=== PATIENT | female | born 1995 | race African-American/Black ===

== ENCOUNTER 2016-03-09 12:27 | Emergency (ER) | payer MEDICAID ==
[2016-03-09 12:34] VITALS: RESP 16
[2016-03-09] MEDS ORDERED: NS 1,000 ML IV ONE (12:47)
--- NOTE | 2016-03-09 12:47 | EDPHY ---
H & P Stated Complaint: Vag bleeding (light to moderate) x 2 weeks HPI/ROS: HPI CHIEF COMPLAINT: Vaginal bleeding HISTORY OF PRESENT ILLNESS: This patient very pleasant 20-year-old female, with significant past medical history is for asthma, presents to the emergency room with vaginal bleeding. She tells me that this been going on since February 17. She does have irregular menses, however normal has a menstrual cycle for 3-7 days. She was last off her cycle January 12. It reoccurred February 17 and has been persistent. She denies any significant pain, she does endorse urinary frequency, denies being . Denies vaginal discharge. She tells me she going to 10-15 pads per day. Past Medical History: Asthma Past Surgical History: no surgical history Social History: Denies use of drugs, endorses occasional alcohol, denies tobacco products Family History: Noncontributory ROS REVIEW OF SYSTEMS: A comprehensive 10 point review of systems is otherwise negative aside from elements mentioned in the history of present illness. Exam Constitutional triage nursing summary reviewed, vital signs reviewed, awake/ alert. Eyes normal conjunctivae and sclera, EOMI, PERRLA. HENT normal inspection, atraumatic, moist mucus membranes, no epistaxis, neck supple/ no meningismus, no raccoon eyes. Respiratory clear to auscultation bilaterally, normal breath sounds, no respiratory distress, no wheezing. Cardiovascular rate normal, regular rhythm, no murmur, no edema, distal pulses normal. Gastrointestinal soft, non-tender, no rebound, no guarding, normal bowel sounds, no distension, no pulsatile mass. Genitourinary no CVA tenderness. Musculoskeletal no midline vertebral tenderness, full range of motion, no calf swelling, no tenderness of extremities, no meningismus, good pulses, neurovascularly intact. Skin pink, warm, & dry, no rash, skin atraumatic. Neurologic awake, alert and oriented x 3, AAOx3, moves all 4 extremities equally, motor intact, sensory intact, CN II-XII intact, normal cerebellar, normal vision, normal speech. Psychiatric normal mood/affect. Heme/Lymph/Immune no lymphadenopathy. Differential Diagnosis: Includes but is not limited to in a particular order, dysfunctional uterine bleeding, vaginal bleeding, , ectopic , anemia Medical Decision Making: Patient had an IV established will check blood work including test, she will pelvic ultrasound and review evaluate her. Re-evaluation: 1446: re-examination at this time this patient is resting comfortably no acute distress. Patient's urinalysis reviewed shows urinary tract infection. I sent this for urine culture. Keflex given 1st dose here. Pelvic ultrasound is unremarkable. Ultrasound of the pelvis The results of the study are negative for acute disease process I discussed the results of this study with the radiologist 1446: went over this patient's blood work results with her as well as urinalysis and ultrasound results. I do recommend that she follows up with OBGYN for dysfunctional uterine bleeding. Treat her urinary tract infection with Keflex. She does understand if she has significant worsening vaginal bleeding she needs return to the ER. Source: Patient - Personal History LMP (Females 10-55): 15-21 Days Ago Current Tetanus Diphtheria and Acellular Pertussis (TDAP): Yes - Medical/Surgical History Hx Asthma: Yes Hx Chronic Respiratory Disease: No Hx Diabetes: No Hx Cardiac Disease: No Hx Renal Disease: No Hx Cirrhosis: No Hx Alcoholism: No Hx HIV/AIDS: No Hx Splenectomy or Spleen Trauma: No Other PMH: ANXIETY, asthma - Social History Smoking Status: Former smoker Constitutional: Initial Vital Signs Temperature (C) 36.4 C 03/09/16 12:30 Heart Rate 72 03/09/16 12:30 Respiratory Rate 16 03/09/16 12:30 Blood Pressure 111/66 03/09/16 12:30 O2 Sat (%) 98 03/09/16 12:30 O2 Delivery Mode Room Air Allergies/Adverse Reactions: amoxicillin Allergy (Severe, Verified 03/09/16 12:31) Anaphylaxis Penicillins Allergy (Severe, Verified 03/09/16 12:31) Anaphylaxis Home Medications: Medication Instructions Recorded Albuterol Hfa Anes Only 05/18/15 Cephalexin [Keflex] 500 mg PO Q6H #28 cap 03/09/16 Medical Decision Making - Data Points Laboratory Results: Laboratory Results 03/09/16 13:05 03/09/16 13:05 03/09/16 03/09/16 13:15 13:05 WBC 4.58 10^3/uL (3.80-9.50) RBC 4.41 10^6/uL (4.18-5.33) Hgb 13.2 g/dL (12.6-16.3) Hct 38.9 % (38.0-47.0) MCV 88.2 fL (81.5-99.8) MCH 29.9 pg (27.9-34.1) MCHC 33.9 g/dL (32.4-36.7) RDW 12.2 % (11.5-15.2) Plt Count 210 10^3/uL (150-400) MPV 9.0 fL (8.7-11.7) Neut % (Auto) 57.1 % (39.3-74.2) Lymph % (Auto) 32.1 % (15.0-45.0) [place] % (Auto) 9.2 % (4.5-13.0) Eos % (Auto) 0.9 % (0.6-7.6) Baso % (Auto) 0.7 % (0.3-1.7) Nucleat RBC Rel Count 0.0 % (0.0-0.2) Absolute Neuts (auto) 2.62 10^3/uL (1.70-6.50) Absolute Lymphs (auto) 1.47 10^3/uL (1.00-3.00) Absolute Monos (auto) 0.42 10^3/uL (0.30-0.80) Absolute Eos (auto) 0.04 10^3/uL (0.03-0.40) Absolute Basos (auto) 0.03 10^3/uL (0.02-0.10) Absolute Nucleated RBC 0.00 10^3/uL (0-0.01) Immature Gran % 0.0 % (0.0-1.1) Immature Gran # 0.00 10^3/uL (0.00-0.10) Sodium 144 mEq/L (134-144) Potassium 3.8 mEq/L (3.5-5.2) Chloride 110 mEq/L (97-110) Carbon Dioxide 23 mEq/l (22-31) Anion Gap 11 mEq/L (8-16) BUN 10 mg/dL (7-23) Creatinine 0.7 mg/dL (0.6-1.0) Estimated GFR > 60 Glucose 102 H mg/dL (70-100) Calcium 8.9 mg/dL (8.5-10.4) Total Bilirubin 0.5 mg/dL (0.1-1.4) Conjugated Bilirubin 0.1 mg/dL (0.0-0.5) Unconjugated Bilirubin 0.4 mg/dL (0.0-1.1) AST 16 IU/L (14-46) ALT 20 IU/L (9-52) Alkaline Phosphatase 60 IU/L (38-126) Total Protein 7.1 g/dL (6.3-8.2) Albumin 3.7 g/dL (3.5-5.0) Lipase 70.0 IU/L (23-300) Beta HCG, Qual NEGATIVE Urine Color YELLOW Urine Appearance CLEAR Urine pH 5.0 (5.0-7.5) Ur Specific [place] 1.018 (1.002-1.030) Urine Protein NEGATIVE (NEGATIVE) Urine Ketones NEGATIVE (NEGATIVE) Urine Blood 2+ H (NEGATIVE) Urine Nitrate NEGATIVE (NEGATIVE) Urine Bilirubin NEGATIVE (NEGATIVE) Urine Urobilinogen NEGATIVE EU (0.2-1.0) Ur Leukocyte Esterase 1+ H (NEGATIVE) Urine RBC 1-3 /hpf (0-3) Urine WBC 3-5 H /hpf (0-3) Ur Epithelial Cells TRACE /lpf (NONE-1+) Urine Mucus TRACE /lpf (NONE-1+) Ur Culture Indicated? INDICATED H (NI) Urine Glucose NEGATIVE (NEGATIVE) Medications Given: Discontinued Medications Sodium Chloride (Ns) 1,000 mls @ 0 mls/hr IV ONCE ONE PRN Reason: Wide Open Stop: 03/09/16 12:48 Last Admin: 03/09/16 13:21 Dose: 1,000 mls Ibuprofen (Motrin) 600 mg PO EDNOW ONE Stop: 03/09/16 14:25 Last Admin: 03/09/16 14:25 Dose: 600 mg Departure - Departure Disposition: Home, Routine, Self-Care Clinical Impression: DUB (dysfunctional uterine bleeding) Urinary tract infection Qualifiers: Urinary tract infection type: acute cystitis Hematuria presence: with hematuria Qualifier Code: (N30.01) Acute cystitis with hematuria Condition: Good Instructions: Urinary Tract Infection in Women (ED), Dysfunctional Uterine Bleeding (ED) Additional Instructions: 1. Stay well-hydrated 2. return to the emergency room if develops worsening symptoms questions or concerns. 3. I do recommend he follow up with OBGYN. 4. Take antibiotic as prescribed. Referrals: NONE *PRIMARY CARE P,. [Primary Care Provider] - As per Instructions Germaine Hollis MD [Medical Doctor] - As per Instructions Prescriptions: Cephalexin [Keflex] 500 mg PO Q6H #28 cap
[2016-03-09 13:15] LABS: ADD DIFF? NO; ADD MORPH? NO; ADD SCAN? NO; ATYPICAL LYMPHOCYTE FLAG 20 (0-99); FRAGMENT RBC FLAG 0 (0-99); HEMATOCRIT 38.9 % (38.0-47.0); HEMOGLOBIN 13.2 g/dL (12.6-16.3); LEFT SHIFT FLG 0 (0-99); LIPEMIA HEMOLYSIS FLAG 90 (0-99); MEAN CELL HEMOGLOBIN 29.9 pg (27.9-34.1); MEAN CELL HEMOGLOBIN CONCENTR. 33.9 g/dL (32.4-36.7); MEAN CELL VOLUME 88.2 fL (81.5-99.8); PLATELET CLUMPS FLAG 10 (0-99); PLATELET COUNT 210 10^3/uL (150-400); RED BLOOD CELL COUNT 4.41 10^6/uL (4.18-5.33); RED CELL DISTRIBUTION WIDTH 12.2 % (11.5-15.2)
[2016-03-09 13:30] LABS: COLOR YELLOW; LEUKOCYTE ESTERASE,URINE 1+ (NEGATIVE); NITRITE,URINE NEGATIVE (NEGATIVE)
[2016-03-09 13:37] LABS: MUCUS TRACE /lpf (NONE-1+)
[2016-03-09 13:40] LABS: ALANINE AMINOTRANSFERASE 20 IU/L (9-52); ALBUMIN 3.7 g/dL (3.5-5.0); ALKALINE PHOSPHATASE 60 IU/L (38-126); ANION GAP 11 mEq/L (8-16); ASPARTATE AMINOTRANSFERASE 16 IU/L (14-46); BILIRUBIN,TOTAL 0.5 mg/dL (0.1-1.4); BILIRUBIN-CONJUGATED 0.1 mg/dL (0.0-0.5); BILIRUBIN-UNCONJUGATED 0.4 mg/dL (0.0-1.1); CALCIUM 8.9 mg/dL (8.5-10.4); CARBON DIOXIDE 23 mEq/l (22-31); CHLORIDE 110 mEq/L (97-110); CREATININE 0.7 mg/dL (0.6-1.0); GLOMERULAR FILTRATION RATE > 60; GLUCOSE 102 mg/dL (70-100); POTASSIUM 3.8 mEq/L (3.5-5.2); SODIUM 144 mEq/L (134-144); TOTAL PROTEIN 7.1 g/dL (6.3-8.2)
[2016-03-09] MEDS ORDERED: IBUPROFEN 600 MG TAB PO ONE ×2 (14:22→14:24)
--- NOTE | 2016-03-09 14:35 | US ---
Pelvic Ultrasound Indication: Irregular bleeding. Technique: Transabdominal and transvaginal imaging. Comparison: None. Findings: Transabdominal Imaging: The anteverted uterus is normal size measuring 6.8 cm in length x 4.1 x 2.9 cm. No adnexal mass or free fluid. Transvaginal Imaging: The ovaries are minimally enlarged with numerous small peripheral follicles an d normal blood flow on Color Doppler imaging. No ovarian cyst. The right ovary measures 3.1 x 2.8 x 2 .5 cm (11.2 mL). The left ovary measures 3.5 x 3.4 x 1.8 cm (11.2 mL). Uterus has normal homogeneous myometrium. No uterine leiomyomas. Endometrial lining is normal thickne ss (9 mm). Impression: 1. Normal uterus and endometrial lining. No uterine leiomyoma. 2. Query polycystic ovaries. No dominant ovarian cyst. 3. No free fluid or adnexal mass. Comment: Results were discussed with Dr. Shaheen Oswald at 2:20 p.m .on March 09, 2016.
[2016-03-09] MEDS ORDERED: CEPHALEXIN 500 MG CAP PO ONE (14:45)
[2016-03-09 15:44] VITALS: BP 115/66; PULSE 70; TEMP 98.2; O2SAT 97
== END 2016-03-09 15:43 | disposition home or self-care (01) ==
DX: N93.8 Other specified abnormal uterine and vaginal bleeding (principal); N30.01 Acute cystitis with hematuria; B96.89 Other specified bacterial agents as the cause of diseases classified elsewhere; J45.909 Unspecified asthma, uncomplicated; Z87.891 Personal history of nicotine dependence

== ENCOUNTER 2016-03-23 19:13 | Emergency (ER) | payer MEDICAID ==
[2016-03-23 19:31] VITALS: RESP 14; TEMP 98.6
--- NOTE | 2016-03-23 20:37 | EDPHY ---
H & P Time Seen by Provider: 03/23/16 19:46 HPI/ROS: HPI Right elbow pain. 20-year-old female by private vehicle. This patient reports that she fell on an outstretched right arm and injured her right elbow about a week ago. She is right-hand dominant. She reports that she has had pain to the posterior aspect of the right elbow and poor posterior aspect of the proximal right forearm. She was evaluated by her primary care physician several days ago and was told that her elbow was okay. She presents with continued pain and pain with extension of the right elbow. ROS: Constitutional: No fever, no chills. No weakness. Musculoskeletal: No back pain. No neck pain. As above. She denies other extremity pain. Skin: No rashes. No lacerations or abrasions. Neurological: No focal weakness or altered sensation. Past medical history: Anxiety. She is on control pills. Social history: Here by herself. Nonsmoker. Physical Exam: General Appearance: Alert, no distress. This patient is responding to questions appropriately and in full sentences. This patient appears well- hydrated and well-nourished. Eyes: Pupils equal and round no pallor or injection. No lid edema, erythema or injection. Right elbow exam: No significant swelling. No erythema or warmth. She does have some mild tenderness on palpation over the radial head. She has some tenderness on palpation of the posterior aspect of the olecranon and proximal posterior forearm/ulna. No lacerations or abrasions. She has pain with extension of her elbow involving the posterior aspect of the elbow and some mild discomfort with supination and pronation. The right upper extremity is neurovascularly intact. Neurological: Motor sensory function is grossly intact. Cranial nerves are normal. Gait is normal. Skin: Warm and dry, no rashes. Extremities are symmetrical. All joints range without pain or impingement except noted. Psychiatric: No agitation. No depression. Database: EKG: Imaging: Right elbow x-ray series: Negative for fracture, subluxation, dislocation. Interpreted by me. Procedures: Emergency department course: From triage, the patient was sent for appropriate x-rays. 9:00 p.m., patient re-evaluated. Resting comfortably at this time. Results of x-rays discussed. Right elbow was put in a sling. She is more comfortable in this position. I will have her follow up with Orthopedics in the next few days for re-evaluation. Pain medication dosing with ibuprofen discussed. Ranging of the right elbow periodic Chavez was reviewed. All of her questions were answered. Return to emergency department precautions discussed she was discharged in good condition. Differential Diagnosis: The differential diagnosis on this patient includes but is not limited to right elbow sprain. Fracture, subluxation, dislocation unlikely. This represents a partial list of diagnoses considered. These considerations are based on history , physical exam, past history, reassessment and diagnostic testing. Smoking Status: Former smoker Constitutional: Initial Vital Signs Temperature (C) 37.0 C 03/23/16 19:28 Heart Rate 80 03/23/16 19:28 Respiratory Rate 14 03/23/16 19:28 Blood Pressure 116/79 03/23/16 19:28 O2 Sat (%) 97 03/23/16 19:28 O2 Delivery Mode Room Air Allergies/Adverse Reactions: amoxicillin Allergy (Severe, Verified 03/09/16 12:31) Anaphylaxis Penicillins Allergy (Severe, Verified 03/09/16 12:31) Anaphylaxis Home Medications: Medication Instructions Recorded Albuterol Hfa Anes Only 05/18/15 MDM/Departure - Depart Disposition: Home, Routine, Self-Care Clinical Impression: Injury of elbow, right Condition: Good Instructions: Elbow Sprain (ED) Additional Instructions: Read and follow provided instructions. Follow-up with your orthopedics, in 1-2 days for re-evaluation as discussed. Removed right arm from sling periodically and range as discussed. Ibuprofen dosin mg every 6 hours with meals for the next 3 days only. Return to the emergency department for worsening pain, discoloration, swelling, loss of sensation or weakness or other serious concerns. Referrals: Donald Donovan MD [Medical Doctor] - As per Instructions
[2016-03-23 21:15] VITALS: BP 122/71; PULSE 70; O2SAT 98
== END 2016-03-23 21:14 | disposition home or self-care (01) ==
DX: S59.901A Unspecified injury of right elbow, initial encounter (principal); Z87.891 Personal history of nicotine dependence; W18.39XA Other fall on same level, initial encounter
CPT/HCPCS: A4565

== ENCOUNTER 2016-04-04 14:03 | Emergency (ER) | payer MEDICAID ==
[2016-04-04 14:09] VITALS: BP 114/61; PULSE 87; RESP 16; TEMP 98.4; O2SAT 97
--- NOTE | 2016-04-04 14:29 | EDPHY ---
H & P Time Seen by Provider: 04/04/16 14:17 HPI/ROS: CHIEF COMPLAINT: Possible strep throat x2 days HISTORY OF PRESENT ILLNESS: 20-year-old immunocompetent female complaining of 2 days of sore throat, bilateral enlarged exudate of tonsils. No trismus no drooling. No change in voice. No nuchal rigidity. No fever no chills. No flu -like symptoms. No cough. No rash. No abdominal or flank pain. No urinary abnormality PRIMARY CARE PROVIDER:[facility] REVIEW OF SYSTEMS: A ten point review of systems was performed and is negative with the exception of the items mentioned in the HPI PAST MEDICAL & SURGICAL HISTORY: No pertinent medical or surgical history SOCIAL HISTORY: Student PHYSICAL EXAM (Prior to examination, patient consented to physical exam, hands were washed and my usual and customary physical exam procedures followed) 1) GENERAL: Well-developed, well-nourished, alert and oriented. Appears to be in no acute distress. 2) HEAD: Normocephalic, atraumatic 3) HEENT: Pupils equal, round, reactive to light bilaterally. Sclera anicteric. Oropharynx: No trismus no drooling, no hot potato voice. Bilateral tonsils are enlarged with exudate, they are symmetrical with no pointing of the uvula. No evidence of peritonsillar abscess. Ears bilaterally with normal tympanic membranes. 4) NECK: Full range of motion, no meningeal signs. Positive submandibular adenopathy. 5) LUNGS: Clear auscultation bilaterally, no wheezes, no rhonchi, no retractions. 6) HEART: Regular rate and rhythm, no murmur, no heave, no gallop. 7) ABDOMEN: No guarding, no rebound, no focal tenderness, negative McBurney's, negative Higgins's, negative Rovsing's, negative peritoneal sign, 8) MUSCULOSKELETAL: No peripheral edema or discoloration. 9) BACK: No CVA tenderness 10) SKIN: No rash, no petechiae. DIFFERENTIAL DIAGNOSIS: No particular include but limited to strep pharyngitis , mononucleosis, peritonsillar abscess Smoking Status: Former smoker Constitutional: Initial Vital Signs Temperature (C) 36.9 C 04/04/16 14:07 Heart Rate 87 02/27/17 14:07 Respiratory Rate 16 04/04/16 14:07 Blood Pressure 114/61 04/04/16 14:07 O2 Sat (%) 97 04/04/16 14:07 O2 Delivery Mode Room Air Allergies/Adverse Reactions: amoxicillin Allergy (Severe, Verified 04/04/16 14:05) Anaphylaxis Penicillins Allergy (Severe, Verified 04/04/16 14:05) Anaphylaxis Home Medications: Medication Instructions Recorded Albuterol Hfa Anes Only 05/18/15 Bcp 04/04/16 Clindamycin HCl [Clindamycin] 300 mg PO TID #30 cap 04/04/16 MDM/Departure - MDM ED Course/Re-evaluation: High clinical suspicion for strep pharyngitis. Recommended empiric treatment. Doubt peritonsillar abscess. Usual and customary pharyngitis precautions provided. She is penicillin allergic. Prescribed clindamycin. - Depart Disposition: Home, Routine, Self-Care Clinical Impression: Acute streptococcal pharyngitis Condition: Good Instructions: Strep Throat (ED) Additional Instructions: Return to the ER immediately if you cannot swallow, have drooling, fevers, neck stiffness, cannot open your jaw, or any other symptoms that concern you. Prescriptions: Clindamycin HCl [Clindamycin] 300 mg PO TID #30 cap Referrals: ARIANA HEATON [Other] - 1-2 days without fail
== END 2016-04-04 14:37 | disposition home or self-care (01) ==
DX: J02.0 Streptococcal pharyngitis (principal); Z87.891 Personal history of nicotine dependence

== ENCOUNTER 2016-05-26 13:23 | Emergency (ER) | payer MEDICAID ==
[2016-05-26 13:32] VITALS: BP 125/84; PULSE 78; RESP 16; TEMP 99.1; O2SAT 98
--- NOTE | 2016-05-26 14:15 | UCPHY ---
H & P Time Seen by Provider: 05/26/16 13:40 Patient Type: Established HPI/ROS: This patient injured her left thumb at the metacarpophalangeal joint 4 days ago while or wrestling with her 10-year-old nephew. She did not fall to the ground does not remember the exact mechanism but points to the ulnar aspect of the 1st metacarpophalangeal joint as the source of the pain and has noted mild swelling associated with this. ROS: No numbness or tingling. No other musculoskeletal injuries. 5 point ROS is otherwise negative. Past Medical/Surgical History: Otherwise healthy Smoking Status: Former smoker Physical Exam: Physical Exam Vital signs are normal. General: No acute distress Eyes: Pupils equal and react to light. Extraocular motions are intact. Lungs: No respiratory distress. Cardiac: Brisk capillary refill is intact throughout. Skin: No rash or pallor. Extremities: Atraumatic normal except for left thumb Left thumb: Patient has mild swelling at the 1st metacarpophalangeal joint with ulnar tenderness to the same joint. While there seems to be mild laxity this joint is symmetric with the uninjured thumb think this is her baseline. No ecchymosis. No other hand tenderness or swelling. Neuro: Alert and oriented x3 with no sensorimotor deficits. Initial differential diagnosis: Thumb fracture versus sprain Constitutional: Initial Vital Signs Temperature (C) 37.3 C 05/26/16 13:24 Heart Rate 78 05/26/16 13:24 Respiratory Rate 16 05/26/16 13:24 Blood Pressure 125/84 H 05/26/16 13:24 O2 Sat (%) 98 05/26/16 13:24 O2 Delivery Mode Room Air Allergies/Adverse Reactions: amoxicillin Allergy (Severe, Verified 05/26/16 13:32) Anaphylaxis Penicillins Allergy (Severe, Verified 05/26/16 13:32) Anaphylaxis Home Medications: Medication Instructions Recorded Bcp 04/04/16 MDM/Departure - MDM Diagnostics: Imaging Impressions Finger X-Ray 05/26/16 13:34 Impression: There is no acute osseous abnormality identified. Imaging Results: Imaging Impressions Finger X-Ray 05/26/16 13:34 Impression: There is no acute osseous abnormality identified. Thumb x-ray: Negative for fracture by my interpretation ED Course/Re-evaluation: Counseled patient drinks hears them. She is placed in a Velcro thumb spica splint. - Depart Disposition: Home, Routine, Self-Care Clinical Impression: Skier's thumb Qualifiers: Encounter type: initial encounter Laterality: left Qualified Code(s): S63.642A - Sprain of metacarpophalangeal joint of left thumb, initial encounter Condition: Good Instructions: Skier's Thumb (ED) Additional Instructions: Diagnosis: Skier's Thumb (thumb sprain) Plan: Thumb splint when your active up and about until symptoms resolve-likely 5-10 days or so. Gentle stretches of the thumb in the meantime to prevent stiffness. Ibuprofen and/or Tylenol for pain until symptoms resolved Limit activity until your symptoms resolve Follow up with the orthopedic physician if you're not improving over the next 7- 10 days with treatment plan. Referrals: FLORINA URBAN,Shawn [Primary Care Provider] - As per Instructions Navya Villalba MD [Medical Doctor] - As per Instructions - PQRS PQRS Measurement: NA
== END 2016-05-26 14:20 | disposition home or self-care (01) ==
LOC: CED 13:23
DX: S63.642A Sprain of metacarpophalangeal joint of left thumb, initial encounter (principal); Y93.72 Activity, wrestling; X50.0XXA Overexertion from strenuous movement or load, initial encounter
CPT/HCPCS: 73140-PO; 99214-PO; G0463-PO; L3807

== ENCOUNTER 2016-06-01 11:11 | Emergency (ER) | payer MEDICAID ==
[2016-06-01 11:31] VITALS: BP 138/74; PULSE 78; RESP 18; TEMP 98; O2SAT 96
--- NOTE | 2016-06-01 12:20 | UCPHY ---
H & P Time Seen by Provider: 06/01/16 12:00 Patient Type: Established HPI/ROS: I saw this patient 6 days prior to this visit for thumb injury with a normal thumb x-ray, diagnosed with ski ears thumb and placed in a Velcro thumb spica splint. She reports still having pain and came back for a recheck. She reports that the pain is now extending up the foot distal forearm a bit. While she was given Dr. browne would since orthopedic phone number for follow-up for any ongoing worsening symptoms she did not follow up with the industry segment specialist. She reports compliance with the splint. She has not taken any medications today for pain. ROS: She denies any intercurrent injury. She denies any numbness or tingling. No swelling. 5 point ROS is otherwise negative. Smoking Status: Former smoker Physical Exam: Physical Exam Vital signs are normal. General: No acute distress Cardiac: Brisk capillary refill is intact throughout. Pulses are 2+ and symmetric in the affected extremity. Skin: No rash or pallor. Extremities: Atraumatic normal except for left thumb that exam is notable for mild tenderness at the metacarpophalangeal joint without significant swelling or laxity. No discoloration. She has mild tenderness to the distal forearm associated with this but no ecchymosis swelling or erythema. Neuro: Alert and oriented x3 with no sensorimotor deficits. Constitutional: Initial Vital Signs Temperature (C) 36.6 C 06/01/16 11:29 Heart Rate 78 06/01/16 11:29 Respiratory Rate 18 06/01/16 11:29 Blood Pressure 138/74 H 06/01/16 11:29 O2 Sat (%) 96 06/01/16 11:29 O2 Delivery Mode Room Air Allergies/Adverse Reactions: amoxicillin Allergy (Severe, Verified 05/26/16 13:32) Anaphylaxis Penicillins Allergy (Severe, Verified 05/26/16 13:32) Anaphylaxis Home Medications: Medication Instructions Recorded Bcp 04/04/16 Ibuprofen [Motrin (*)] 600 mg PO Q6 PRN #30 tab 06/01/16 MDM/Departure - [facility] ED Course/Re-evaluation: Discussion: This patient has a benign exam currently with no clinical evidence of complications of her initial sprain. I counseled regarding this. I reminded her to follow up with the industry segment specialist for further evaluation - Depart Disposition: Home, Routine, Self-Care Clinical Impression: Thumb sprain Qualifiers: Encounter type: initial encounter Sprain of finger site: metacarpophalangeal joint Laterality: unspecified laterality Qualified Code(s): S63.649A - Sprain of metacarpophalangeal joint of unspecified thumb, initial encounter Condition: Good Instructions: Skier's Thumb (ED) Additional Instructions: Diagnosis: Thumb sprain Plan: You may also have a tendon strain this causing the pain extending up her forearm. Ibuprofen 600 mg per 6 hours as needed for pain Tylenol in addition Wear the splint until symptoms improve but the sure to do gentle stretches of thumb daily Due to the ongoing symptoms, follow up with Dr. pavan salazar-industry segment specialist for further evaluation. Prescriptions: Ibuprofen [Motrin (*)] 600 mg PO Q6 PRN #30 tab PRN Reason: Pain Referrals: FLORINA URBAN,. [Primary Care Provider] - As per Instructions Navya Villalba MD [Medical Doctor] - As per Instructions - PQRS PQRS Measurement: NA
== END 2016-06-01 12:21 | disposition home or self-care (01) ==
LOC: CED 11:11
DX: S63.642A Sprain of metacarpophalangeal joint of left thumb, initial encounter (principal)
CPT/HCPCS: 99214-PO; G0463-PO

== ENCOUNTER 2016-07-14 16:16 | Emergency (ER) | payer MEDICAID ==
[2016-07-14] MEDS ORDERED: NS 1,000 ML IV ONE (17:20)
--- NOTE | 2016-07-14 17:33 | EDPHY ---
H & P Stated Complaint: fever n/v/d Time Seen by Provider: 07/14/16 16:42 HPI/ROS: CHIEF COMPLAINT: Fever, vomiting, diarrhea, sinus congestion HISTORY OF PRESENT ILLNESS: The patient is a 20-year-old female who comes to the emergency department complaining of a fever up to 103 yesterday. She has not had a fever today. She also states that she had diarrhea and vomited twice yesterday. Nonbloody. She states that she has sinus congestion. She also had a mild sore throat a few days ago. Yesterday her boyfriend told her she needed to come to the ER but she could not get her right here until today. She denies abdominal pain. She denies urinary symptoms or vaginal symptoms. REVIEW OF SYSTEMS: Constitutional: See HPI EENTM: See HPI Respiratory: denies: cough, shortness of breath Cardiac: denies: chest pain, irregular heart rate, lightheadedness, palpitations Gastrointestinal/Abdominal: See HPI Genitourinary: denies: dysuria, frequency, hematuria, pain Musculoskeletal: denies: joint pain, muscle pain Skin: denies: lesions, rash, jaundice, bruising Neurological: denies: headache, numbness, paresthesia, tingling, dizziness, weakness Hematologic/Lymphatic: denies: blood clots, easy bleeding, easy bruising Immunologic/allergic: denies: HIV/AIDS, transplant EXAM: GENERAL: Well-appearing, well-nourished and in no acute distress. HEAD: Atraumatic, normocephalic. EYES: Pupils equal round and reactive to light, extraocular movements intact, sclera anicteric, conjunctiva are normal. ENT: TMs normal, sinus congestion , oropharynx clear without exudates. Moist mucous membranes. NECK: Normal range of motion, supple without lymphadenopathy or JVD. LUNGS: Breath sounds clear to auscultation bilaterally and equal. No wheezes rales or rhonchi. HEART: Regular rate and rhythm without murmurs, rubs or gallops. ABDOMEN: Soft, nontender, normoactive bowel sounds. No guarding, no rebound. No masses appreciated. BACK: No CVA tenderness, no spinal tenderness, step-offs or deformities EXTREMITIES: Normal range of motion, no pitting or edema. No clubbing or cyanosis. NEUROLOGICAL: Cranial nerves II through XII grossly intact. Normal speech, normal gait. 5/5 strength, normal movement in all extremities, normal sensation PSYCH: Normal mood, normal affect. SKIN: Warm, dry, normal turgor, no visible rashes or lesions. Source: Patient Exam Limitations: No limitations - Personal History LMP (Females 10-55): 8-14 Days Ago Current Tetanus/Diphtheria Vaccine: Unsure - Medical/Surgical History Hx Asthma: Yes Hx Chronic Respiratory Disease: No Hx Diabetes: No Hx Cardiac Disease: No Hx Renal Disease: No Hx Cirrhosis: No Hx Alcoholism: No Hx HIV/AIDS: No Hx Splenectomy or Spleen Trauma: No Other PMH: ANXIETY, asthma, depression - Family History Significant Family History: No pertinent family hx - Social History Smoking Status: Former smoker Alcohol Use: Sober Drug Use: None Constitutional: Initial Vital Signs Temperature (C) 36.8 C 07/14/16 16:19 Heart Rate 88 07/14/16 16:19 Respiratory Rate 16 07/14/16 16:19 Blood Pressure 127/75 H 07/14/16 16:19 O2 Sat (%) 97 07/14/16 16:19 O2 Delivery Mode Room Air Allergies/Adverse Reactions: amoxicillin Allergy (Severe, Verified 07/14/16 16:18) Anaphylaxis Penicillins Allergy (Severe, Verified 07/14/16 16:18) Anaphylaxis Home Medications: Medication Instructions Recorded Bcp 04/04/16 Ibuprofen [Motrin (*)] 600 mg PO Q6 PRN #30 tab 06/01/16 Citalopram 07/14/16 Medical Decision Making ED Course/Re-evaluation: The patient is well appearing now. She is afebrile. Her vital signs are stable. She is receiving IV fluids which will help since she was having diarrhea and vomiting yesterday. Otherwise we discussed fever control and hydration and rest. I suspect that she has a viral illness. Her sister has something similar. We discussed the natural course and indications for returning to the emergency department. Differential Diagnosis: Partial list of the Differential diagnosis considered include but were not limited to; viral syndrome, gastroenteritis, dehydration, electrolyte abnormality and although unlikely based on the history and physical exam, I also considered sepsis, meningitis, ectopic. I discussed these differential diagnoses and the plan with the patient as well as the usual and expected course. The patient understands that the diagnosis is provisional and that in medicine we are not always correct and that further workup is often warranted. Usual and customary warnings were given. All of the patient's questions were answered. The patient was instructed to return to the emergency department should the symptoms at all worsen or return, otherwise to followup with the physician as we discussed. - Data Points Medications Given: Discontinued Medications Sodium Chloride (Ns) 1,000 mls @ 0 mls/hr IV ONCE ONE PRN Reason: Wide Open Stop: 07/14/16 17:21 Last Admin: 07/14/16 17:20 Dose: 1,000 mls Departure - Departure Disposition: Home, Routine, Self-Care Clinical Impression: Fever Qualifiers: Fever type: unspecified Qualified Code(s): R50.9 - Fever, unspecified Diarrhea Qualifiers: Diarrhea type: unspecified type Qualified Code(s): R19.7 - Diarrhea, unspecified Condition: Fair Instructions: Fever in Adults (ED), Acute Diarrhea (ED) Referrals: ARIANA JARAMILLO [Other] - As per Instructions Stand Alone Forms: Work Excuse
[2016-07-14] MEDS ORDERED: ACETAMINOPHEN 500 MG TAB ONE (19:00)
[2016-07-14 19:13] VITALS: BP 107/74; PULSE 79; RESP 18; TEMP 97.9; O2SAT 98
== END 2016-07-14 19:13 | disposition home or self-care (01) ==
DX: R50.9 Fever, unspecified (principal); R19.7 Diarrhea, unspecified; J45.909 Unspecified asthma, uncomplicated; Z87.891 Personal history of nicotine dependence

== ENCOUNTER 2016-08-01 20:35 | Emergency (ER) | payer MEDICAID ==
[2016-08-01 20:46] VITALS: BP 118/81; PULSE 86; RESP 16; TEMP 98.8; O2SAT 97
[2016-08-01] MEDS ORDERED: IBUPROFEN 600 MG TAB PO ONE ×2 (20:49→20:50)
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
== END 2016-08-01 21:24 | disposition home or self-care (01) ==
LOC: CED 20:35
DX: S53.401A Unspecified sprain of right elbow, initial encounter (principal); S46.811A Strain of other muscles, fascia and tendons at shoulder and upper arm level, right arm, initial encounter; Z87.891 Personal history of nicotine dependence; V18.0XXA Pedal cycle driver injured in noncollision transport accident in nontraffic accident, initial encounter; Y92.89 Other specified places as the place of occurrence of the external cause
CPT/HCPCS: 73080-PO; A4565

== ENCOUNTER 2016-08-06 17:39 | Emergency (ER) | payer MEDICAID ==
[2016-08-06 17:52] VITALS: BP 102/71; PULSE 103; RESP 16; TEMP 98.2; O2SAT 96
[2016-08-06] MEDS ORDERED: ACETAMINOPHEN 500 MG TAB PO ONE (18:06)
[2016-08-06] MEDS ORDERED: LIDOCAINE 5% 1 EA PATCH TD ONE (18:37)
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
[2016-08-06] MEDS ORDERED: PATCH REMOVAL 1 EA PATCH TD SCH (21:00)
== END 2016-08-06 18:56 | disposition home or self-care (01) ==
LOC: CED 17:39
DX: S50.11XD Contusion of right forearm, subsequent encounter (principal); Z87.891 Personal history of nicotine dependence; V18.9XXD Unspecified pedal cyclist injured in noncollision transport accident in traffic accident, subsequent encounter
CPT/HCPCS: 73080-PO; 73090-PO

== ENCOUNTER 2016-09-07 20:04 | Emergency (ER) | payer MEDICAID ==
[2016-09-07 20:11] VITALS: BP 122/74; PULSE 81; RESP 14; TEMP 98.8; O2SAT 98
[2016-09-07] MEDS ORDERED: AZITHROMYCIN 250 MG TAB PO ONE (20:22)
--- NOTE | 2016-09-07 20:26 | EDPHY ---
H & P Stated Complaint: posible strep throat Time Seen by Provider: 09/07/16 20:15 HPI/ROS: CHIEF COMPLAINT: Strep throat HISTORY OF PRESENT ILLNESS: Patient is a 20-year-old female who comes to the emergency department complaining of strep throat. She states that on Monday she began having sore throat and today noticed exudate. No fever. No cough. No respiratory symptoms. No abdominal pain, no fatigue. REVIEW OF SYSTEMS: Constitutional: denies: chills, fever, recent illness, recent injury EENTM: See HPI Respiratory: denies: cough, shortness of breath Cardiac: denies: chest pain, irregular heart rate, lightheadedness, palpitations Gastrointestinal/Abdominal: denies: abdominal pain, diarrhea, nausea, vomiting, blood streaked stools Genitourinary: denies: dysuria, frequency, hematuria, pain Musculoskeletal: denies: joint pain, muscle pain Skin: denies: lesions, rash, jaundice, bruising Neurological: denies: headache, numbness, paresthesia, tingling, dizziness, weakness Hematologic/Lymphatic: denies: blood clots, easy bleeding, easy bruising Immunologic/allergic: denies: HIV/AIDS, transplant EXAM: GENERAL: Well-appearing, well-nourished and in no acute distress. HEAD: Atraumatic, normocephalic. EYES: Pupils equal round and reactive to light, extraocular movements intact, sclera anicteric, conjunctiva are normal. ENT: TMs normal, nares patent, erythematous swollen tonsils with exudate. . Moist mucous membranes. NECK: Normal range of motion, supple without lymphadenopathy or JVD. LUNGS: Breath sounds clear to auscultation bilaterally and equal. No wheezes rales or rhonchi. HEART: Regular rate and rhythm without murmurs, rubs or gallops. ABDOMEN: Soft, nontender, normoactive bowel sounds. No guarding, no rebound. No masses appreciated. BACK: No CVA tenderness, no spinal tenderness, step-offs or deformities EXTREMITIES: Normal range of motion, no pitting or edema. No clubbing or cyanosis. NEUROLOGICAL: Cranial nerves II through XII grossly intact. Normal speech, normal gait. 5/5 strength, normal movement in all extremities, normal sensation PSYCH: Normal mood, normal affect. SKIN: Warm, dry, normal turgor, no visible rashes or lesions. Source: Patient Exam Limitations: No limitations - Personal History LMP (Females 10-55): 1-7 Days Ago Current Tetanus/Diphtheria Vaccine: Yes - Medical/Surgical History Hx Asthma: Yes Hx Chronic Respiratory Disease: No Hx Diabetes: No Hx Cardiac Disease: Yes Hx Renal Disease: No Hx Cirrhosis: No Hx Alcoholism: No Hx HIV/AIDS: No Hx Splenectomy or Spleen Trauma: No Other PMH: PMHx: ANXIETY, asthma, depression, heart murmur, intermittent chest pain without further eval. PSHx: denies - Family History Significant Family History: No pertinent family hx - Social History Smoking Status: Former smoker Alcohol Use: Sober Drug Use: None Constitutional: Initial Vital Signs Temperature (C) 37.1 C 09/07/16 20:07 Heart Rate 81 09/07/16 20:07 Respiratory Rate 14 09/07/16 20:07 Blood Pressure 122/74 H 09/07/16 20:07 O2 Sat (%) 98 09/07/16 20:07 O2 Delivery Mode Room Air Allergies/Adverse Reactions: amoxicillin Allergy (Severe, Verified 08/06/16 17:46) Anaphylaxis Penicillins Allergy (Severe, Verified 08/06/16 17:46) Anaphylaxis strawberry Allergy (Verified 09/07/16 20:06) Home Medications: Medication Instructions Recorded Apri 28 Day Tablet 09/07/16 Azithromycin 250 mg PO DAILY #4 tablet 09/07/16 Citalopram 09/07/16 Medical Decision Making ED Course/Re-evaluation: Clinically the patient has strep throat. I will begin treatment. She is happy with this plan. She is afebrile. She is nontoxic-appearing. We discussed indications for returning. No splenomegaly. Differential Diagnosis: Partial list of the Differential diagnosis considered include but were not limited to; strep throat, mononucleosis and although unlikely based on the history and physical exam, I also considered sepsis, abscess. I discussed these differential diagnoses and the plan with the patient as well as the usual and expected course. The patient understands that the diagnosis is provisional and that in medicine we are not always correct and that further workup is often warranted. Usual and customary warnings were given. All of the patient's questions were answered. The patient was instructed to return to the emergency department should the symptoms at all worsen or return, otherwise to followup with the physician as we discussed. - Data Points Medications Given: Discontinued Medications Azithromycin (Zithromax) 500 mg PO EDNOW ONE PRN Reason: Protocol Stop: 09/07/16 20:23 Last Admin: 09/07/16 20:33 Dose: 500 mg Departure - Departure Disposition: Home, Routine, Self-Care Clinical Impression: Strep throat Condition: Fair Instructions: Strep Throat (ED) Referrals: ARIANA JARAMILLO [Other] - As per Instructions Prescriptions: Azithromycin 250 mg PO DAILY #4 tablet
== END 2016-09-07 20:57 | disposition home or self-care (01) ==
DX: J02.0 Streptococcal pharyngitis (principal); J45.909 Unspecified asthma, uncomplicated; Z87.891 Personal history of nicotine dependence

== ENCOUNTER 2016-11-16 15:36 | Emergency (ER) | payer MEDICAID ==
[2016-11-16 15:41] VITALS: BP 106/87; PULSE 88; RESP 16; TEMP 98.1; O2SAT 98
== END 2016-11-16 16:30 | disposition left against medical advice (07) ==
DX: Z53.21 Procedure and treatment not carried out due to patient leaving prior to being seen by health care provider (principal)

== ENCOUNTER 2016-11-16 18:09 | Emergency (ER) | payer MEDICAID ==
[2016-11-16 18:23] VITALS: BP 121/78; PULSE 91; RESP 14; TEMP 99.3; O2SAT 97
[2016-11-16] MEDS ORDERED: IBUPROFEN 600 MG TAB PO ONE (18:51)
--- NOTE | 2016-11-16 18:54 | EDPHY ---
H & P Time Seen by Provider: 11/16/16 18:22 HPI/ROS: This patient reports left hand and wrist injury from a combination of slamming her hand in a screen door at home last night and then falling on outstretched hand. She complains primarily of 5th finger pain and mild wrist discomfort. She reports the pain is at the PIP joint of the 5th finger more than the metacarpophalangeal joint. She also has pain at the 5th metacarpal region of the left hand. She is brought in by her mother by private vehicle for further evaluation of her pain. She has not taken any medication for pain today. ROS: Musculoskeletal: She denies any other injuries from the fall. Neuro: No numbness or tingling the affected extremity Cardiovascular: No pallor to the affected extremity. Integumentary: No lacerations abrasions except for minimal abrasion to the right heel from the screen door. 5 point ROS is otherwise negative Smoking Status: Former smoker Physical Exam: Physical Exam Vital signs are normal. General: No acute distress HEENT: Atraumatic. Eyes: Pupils equal and react to light. Extraocular motions are intact. Lungs: No respiratory distress. Cardiac: Brisk capillary refill is intact throughout. Pulses are 2+ and symmetric in the affected extremity. Skin: No rash or pallor. Extremities: Atraumatic normal except for left hand Left hand: Patient has mild swelling to the 5th metacarpal region extending the 5th finger with tenderness at the PIP joint finger held in partial flexion with increased pain with extension. No malrotation of the affected finger. No laxity in the affected PIP joint. She also has minimal tenderness at the metacarpophalangeal joint but no swelling Left wrist: Although the patient complained of some wrist pain she has no significant tenderness on my exam in the wrist. No anatomical snuffbox tenderness. She maintains full range of motion of the wrist. However motion wrist causes some pain to the 5th metacarpal region. Neuro: Alert with no sensorimotor deficits to the affected extremity. Initial differential diagnosis: Finger sprain versus fracture, 5th metacarpal contusion /hematoma versus fracture Constitutional: Initial Vital Signs Temperature (C) 37.4 C 11/16/16 18:17 Heart Rate 91 11/16/16 18:17 Respiratory Rate 14 11/16/16 18:17 Blood Pressure 121/78 H 11/16/16 18:17 O2 Sat (%) 97 11/16/16 18:17 O2 Delivery Mode Room Air Allergies/Adverse Reactions: amoxicillin Allergy (Severe, Verified 11/16/16 18:16) Anaphylaxis Penicillins Allergy (Severe, Verified 11/16/16 18:16) Anaphylaxis strawberry Allergy (Verified 11/16/16 18:16) Home Medications: Medication Instructions Recorded Apri 28 Day Tablet 09/07/16 Albuterol 11/16/16 MDM/Departure - MDM Diagnostics: Wrist x-rays: Normal by my interpretation Hand x-rays: Normal by my interpretation Imaging Results: Imaging Impressions Hand X-Ray 11/16/16 18:24 Impression: No acute osseous findings. Wrist X-Ray 11/16/16 18:24 Impression: No acute osseous findings. Medications Given: Discontinued Medications Ibuprofen (Motrin) 600 mg PO EDNOW ONE Stop: 11/16/16 18:52 Last Admin: 11/16/16 19:14 Dose: 600 mg ED Course/Re-evaluation: We shannan-taped her 4th 5th finger. I counseled patient regarding finger sprain and hand contusion. We also placed an Jaylon wrap to the hand. Ibuprofen-600 mg p.o. Discussion: Finger sprain without laxity other concerning findings. Neurovascularly intact. - Depart Disposition: Home, Routine, Self-Care Clinical Impression: Finger sprain Qualifiers: Encounter type: initial encounter Finger: little finger Sprain of finger site: other site Laterality: left Qualified Code(s): S63.697A - Other sprain of left little finger, initial encounter Condition: Good Instructions: Finger Sprain (ED) Additional Instructions: Diagnosis: Finger sprain Plan: Ibuprofen Tylenol for discomfort if needed Gentle stretching the finger each day Shannan tape fingers when up and about Wrist splint in addition until symptoms improve-likely over the next 5-7 days. Referrals: FLORINA URBAN,. [Primary Care Provider] - As per Instructions
== END 2016-11-16 19:29 | disposition home or self-care (01) ==
LOC: CED 18:09
DX: S63.697A Other sprain of left little finger, initial encounter (principal); Z87.891 Personal history of nicotine dependence; W23.0XXA Caught, crushed, jammed, or pinched between moving objects, initial encounter
CPT/HCPCS: 73110-PO; 73130-PO

== ENCOUNTER 2017-02-10 00:18 | Emergency (ER) | payer MEDICAID ==
[2017-02-10 00:34] VITALS: BP 138/90; PULSE 90; RESP 16; TEMP 98.6; O2SAT 97
--- NOTE | 2017-02-10 01:20 | EDPHY ---
H & P Time Seen by Provider: 02/10/17 00:25 HPI/ROS: CC: right foot pain Smoking Status: Former smoker Constitutional: Initial Vital Signs Temperature (C) 98.6 F 02/10/17 00:31 Heart Rate 90 02/10/17 00:31 Respiratory Rate 16 02/10/17 00:31 Blood Pressure 138/90 H 02/10/17 00:31 O2 Sat (%) 97 02/10/17 00:31 O2 Delivery Mode Room Air Allergies/Adverse Reactions: amoxicillin Allergy (Severe, Verified 02/10/17 00:34) Anaphylaxis Penicillins Allergy (Severe, Verified 02/10/17 00:34) Anaphylaxis strawberry Allergy (Verified 02/10/17 00:34) Home Medications: Medication Instructions Recorded Apri 28 Day Tablet 09/07/16 Albuterol 11/16/16 Departure - Departure Disposition: Home, Routine, Self-Care Clinical Impression: Pain in right foot Condition: Good Instructions: Plantar Fasciitis (ED), Foot Sprain (ED) Additional Instructions: Wear boot as directed. Follow up with podiatry (Dr. Montes De Oca) or orthopedics ( Dr. Ibanez) next week. Continue ibuprofen as directed for pain. Referrals: Bettie Ibanez MD [Medical Doctor] - As per Instructions Juan Montes De Oca MD [Doctor of Podiatric Medicine] - As per Instructions
== END 2017-02-10 01:19 | disposition home or self-care (01) ==
LOC: CED 00:18
DX: M79.671 Pain in right foot (principal); Z87.891 Personal history of nicotine dependence
CPT/HCPCS: 73590-PO; 73630-PO; L4386

== ENCOUNTER 2017-03-08 14:51 | Emergency (ER) | payer MEDICAID ==
--- NOTE | 2017-03-08 15:08 | EDPHY ---
H & P Stated Complaint: vaginal discharge and itchy, concerned re yeast infection Time Seen by Provider: 03/08/17 15:07 HPI/ROS: HPI: This is a 21-year-old female who presents with Chief Complaint: vaginal discharge and itchy, concerned re yeast infection Location:pelvic Quality: Discharge Duration: 1 day Signs and Symptoms: no fever, no nausea, no vomiting, no hematemesis, no blood in stool, no abdominal bloating, no diarrhea, no back pain, no urinary symptoms , no vaginal bleeding, no indigestion, no chest pain, no shortness of breath Timing: Acute, constant Severity: Moderate Context: Patient reports that she woke up this morning with white vaginal discharge and pruritus. prior history of bacterial vaginosis. Last pelvic exam was approximately urine half ago. She takes oral control pills and reports compliance. Boyfriend of a year and half. Unprotected sexual intercourse. LMP 22 days ago. Modifying Factors: Comment: ROS: see HPI Constitutional: No fever, no chills, no weight loss Eyes: No blurred vision Respiratory: No shortness of breath, no cough Cardiovascular: No chest pain, no palpitations Gastrointestinal: No nausea, no vomiting, no diarrhea, no hematemesis, no blood in stool Genitourinary: No dysuria, no blood in urine Extremities: No myalgias, no edema Neurologic: No weakness, no numbness Skin: No rashes, no petechiae Hematologic: No bruising, no bleeding MEDICAL/SURGICAL/SOCIAL HISTORY: PMHx: Alcohol Syndrome at , ADHD, anxiety, asthma, depression, heart murmur, bacterial vaginosis PSHx: denies Social history: Student CONSTITUTIONAL: awake and alert, no obvious distress HEENT: Atraumatic and normocephalic, PERRL, EOMI. Tympanic membranes clear. Oropharynx clear, no exudate and moist pink mucosa. Airway patent. No lymphadenopathy. No meningismus. Cardiovascular: Normal S1/S2, regular rate, regular rhythm, without murmur rub or gallop. PULMONARY/CHEST: Symmetrical and nontender. Clear to auscultation bilaterally. Good air movement. No accessory muscle usage. ABDOMEN: Soft, nondistended, nontender, no rebound, no guarding, no peritoneal signs, no masses or organomegaly. No CVAT. PELVIC: normal external genitalia, normal cervix, cervical os was closed, no cervical motion tenderness, no adnexal mass, thick yellowish white discharge, no bleeding. The exam was performed with a cloth examiner machine. EXTREMITIES: 2/2 pulses, strength 5/5, no deformities, no clubbing, no cyanosis or edema. NEUROLOGICAL: no focal neuro deficits. GCS 15. SKIN: Warm and dry, no erythema. no rash. Good capillary refill. Source: Patient Exam Limitations: No limitations - Personal History LMP (Females 10-55): 22-28 Days Ago Current Tetanus/Diphtheria Vaccine: Yes Current Tetanus Diphtheria and Acellular Pertussis (TDAP): Yes Tetanus Vaccine Date: < 10 years - Medical/Surgical History Hx Asthma: Yes Hx Chronic Respiratory Disease: No Hx Diabetes: No Hx Cardiac Disease: Yes Hx Renal Disease: No Hx Cirrhosis: No Hx Alcoholism: No Hx HIV/AIDS: No Hx Splenectomy or Spleen Trauma: No Other PMH: PMHx: Alcohol Syndrome at , ADHD, anxiety, asthma, depression, heart murmur, bacterial vaginosis. PSHx: denies - Social History Smoking Status: Former smoker Constitutional: Initial Vital Signs Temperature (C) 36.8 C 03/08/17 14:53 Heart Rate 93 03/08/17 14:53 Respiratory Rate 20 03/08/17 14:53 Blood Pressure 126/89 H 03/08/17 14:53 O2 Sat (%) 97 03/08/17 14:53 O2 Delivery Mode Room Air Allergies/Adverse Reactions: amoxicillin Allergy (Severe, Verified 03/08/17 14:52) Anaphylaxis Penicillins Allergy (Severe, Verified 03/08/17 14:52) Anaphylaxis strawberry Allergy (Verified 03/08/17 14:52) Home Medications: Medication Instructions Recorded Apri 28 Day Tablet 09/07/16 Albuterol 11/16/16 Metronidazole [Metrogel-Vaginal] 1 aga VG HS 5 Days #5 gel.w.appl 03/08/17 Medical Decision Making ED Course/Re-evaluation: Pelvic exam; cultures taken No signs of PID/UTI/vaginal laceration Swab is positive for BV and yeast infection. Given Diflucan 150 mg and prescribed Rx for Metrogel vaginal suppositories. This patient was seen under the supervision of my primary supervising physician. I evaluated care for this patient independently. Differential Diagnosis: Differential diagnosis includes but is not limited to bacterial vaginosis candidiasis, gonorrhea, chlamydia, Trichomonas. - Data Points Laboratory Results: 03/08/17 03/08/17 15:35 15:35 Trichomonas (Wet Prep) NO TRICHOMONAS Gretchen species DNA Pending C.trachomatis RNA (TMA) Pending Gardnerella DNA Probe Pending N.gonorrhoeae RNA (TMA) Pending Trichomonas DNA Probe Pending Medications Given: Discontinued Medications Fluconazole (Diflucan) 150 mg PO EDNOW ONE Stop: 03/08/17 16:25 Last Admin: 03/08/17 16:40 Dose: 150 mg Departure - Departure Disposition: Home, Routine, Self-Care Clinical Impression: Bacterial vaginosis, Vulvovaginal candidiasis Condition: Good Instructions: Bacterial Vaginosis (ED), Yeast Infection (ED) Additional Instructions: Please observe pelvic rest for 1 week. That includes no douching, insertion of tampons, sexual intercourse. Use condoms during sexual intercourse. Take all of the Metrogel suppository for 5 days. Referrals: ARIANA RODAS [Other] - As per Instructions Prescriptions: Metronidazole [Metrogel-Vaginal] 1 aga VG HS 5 Days #5 gel.w.appl
[2017-03-08] MEDS ORDERED: FLUCONAZOLE 150 MG TAB PO ONE (16:24)
[2017-03-08 17:04] VITALS: BP 112/65; PULSE 71; RESP 18; TEMP 97.9; O2SAT 99
[2017-03-09 11:53] LABS: GC AMPLIFICATION GENPROBE NEGATIVE (NEGATIVE)
== END 2017-03-08 17:04 | disposition home or self-care (01) ==
DX: N76.0 Acute vaginitis (principal); B37.3 Candidiasis of vulva and vagina; J45.909 Unspecified asthma, uncomplicated; Z87.891 Personal history of nicotine dependence

== ENCOUNTER 2017-10-11 19:50 | Emergency (ER) | payer MEDICAID ==
--- NOTE | 2017-10-11 20:13 | EDPHY ---
H & P Stated Complaint: Abd cramping, had a blood clot, last period 3 months ago, Time Seen by Provider: 10/11/17 20:12 HPI/ROS: CHIEF COMPLAINT: Pelvic cramping, uterine bleeding HISTORY OF PRESENT ILLNESS: The patient presents the ED with complaints of pelvic cramping and uterine bleeding. She reportedly passed a large clot prior to arrival. She has had mild bleeding since that time. The patient is on continuous oral control pills. Her last menstrual cycle was 3 months ago. The patient is currently sexually active. The patient denies recent complaints of dysuria, fever or flank pain. She denies prior history of abdominal surgery. The patient takes no regular prescription medications aside from her control pills. The patient denies any history of pelvic trauma or painful intercourse. REVIEW OF SYSTEMS: A comprehensive 10 point review of systems is otherwise negative aside from elements mentioned in the history of present illness. Source: Patient Exam Limitations: No limitations - Personal History LMP (Females 10-55): Over 28 Days Ago Current Tetanus Diphtheria and Acellular Pertussis (TDAP): Yes Tetanus Vaccine Date: < 10 years - Medical/Surgical History Hx Asthma: Yes Hx Chronic Respiratory Disease: No Hx Diabetes: No Hx Cardiac Disease: Yes Hx Renal Disease: No Hx Cirrhosis: No Hx Alcoholism: No Hx HIV/AIDS: No Hx Splenectomy or Spleen Trauma: No Other PMH: PMHx: Alcohol Syndrome at , ADHD, anxiety, asthma, depression, heart murmur, bacterial vaginosis. PSHx: denies - Social History Smoking Status: Former smoker - Physical Exam Exam: General Appearance: Alert, mild discomfort Eyes: Pupils equal and round no pallor or injection ENT, Mouth: Mucous membranes moist Respiratory: There are no retractions, lungs are clear to auscultation Cardiovascular: Regular rate and rhythm Gastrointestinal: Tenderness to palpation in the suprapubic area, bilateral lower abdominal tenderness Neurological: 5/5 strength all 4 extremities Skin: Warm and dry, no rashes Musculoskeletal: Neck is supple nontender Extremities: symmetrical, full range of motion Constitutional: Initial Vital Signs Temperature (C) 36.7 C 10/11/17 19:55 Heart Rate 94 10/11/17 19:55 Respiratory Rate 18 10/11/17 19:55 Blood Pressure 137/89 H 10/11/17 19:55 O2 Sat (%) 96 10/11/17 19:55 O2 Delivery Mode Room Air Allergies/Adverse Reactions: amoxicillin Allergy (Severe, Verified 10/11/17 19:54) Anaphylaxis Penicillins Allergy (Severe, Verified 10/11/17 19:54) Anaphylaxis strawberry Allergy (Verified 10/11/17 19:54) Home Medications: Medication Instructions Recorded Apri 28 Day Tablet 09/07/16 Albuterol 11/16/16 Metronidazole [Metrogel-Vaginal] 1 aga VG HS 5 Days #5 gel.w.appl 03/08/17 Medical Decision Making - Diagnostics Imaging Results: Imaging Impressions Pelvic/Renal Ultrasound 10/11/17 20:53 Impression: Normal ultrasound pelvis. Results called and discussed with Dr. Yang Enriquez at 10/11/2017 22:17. ED Course/Re-evaluation: The patient presents to the ED with complaints of abnormal uterine bleeding. She reportedly passed clots earlier today. The patient's test is negative. She is noted to be hemodynamically stable. Patient did have some mild abdominal tenderness and pelvic tenderness. She received Toradol for this. The pelvic ultrasound demonstrates no evidence of an obvious ovarian torsion or cyst. I re-evaluated the patient at 10:30 p.m.. I do feel that she can follow up with her regular primary care provider. The patient is instructed to return to the ED for markedly worsening pain, fever , bleeding or other concerns. Differential Diagnosis: Differential diagnosis considered includes ectopic , dysfunctional uterine bleeding, critical anemia, ovarian torsion - Data Points Laboratory Results: Laboratory Results 10/11/17 20:23 10/11/17 20:23 10/11/17 10/11/17 10/11/17 20:23 20:23 20:23 WBC 8.69 10^3/uL 10^3/uL (3.80-9.50) RBC 4.74 10^6/uL 10^6/uL (4.18-5.33) Hgb 13.3 g/dL g/dL (12.6-16.3) Hct 40.7 % % (38.0-47.0) MCV 85.9 fL fL (81.5-99.8) MCH 28.1 pg pg (27.9-34.1) MCHC 32.7 g/dL g/dL (32.4-36.7) RDW 12.9 % % (11.5-15.2) Plt Count 309 10^3/uL 10^3/uL (150-400) MPV 8.8 fL fL (8.7-11.7) Neut % (Auto) 65.0 % % (39.3-74.2) Lymph % (Auto) 26.7 % % (15.0-45.0) [place] % (Auto) 7.1 % % (4.5-13.0) Eos % (Auto) 0.8 % % (0.6-7.6) Baso % (Auto) 0.2 % L % (0.3-1.7) Nucleat RBC Rel Count 0.0 % % (0.0-0.2) Absolute Neuts (auto) 5.64 10^3/uL 10^3/uL (1.70-6.50) Absolute Lymphs (auto) 2.32 10^3/uL 10^3/uL (1.00-3.00) Absolute Monos (auto) 0.62 10^3/uL 10^3/uL (0.30-0.80) Absolute Eos (auto) 0.07 10^3/uL 10^3/uL (0.03-0.40) Absolute Basos (auto) 0.02 10^3/uL 10^3/uL (0.02-0.10) Absolute Nucleated RBC 0.00 10^3/uL 10^3/uL (0-0.01) Immature Gran % 0.2 % % (0.0-1.1) Immature Gran # 0.02 10^3/uL 10^3/uL (0.00-0.10) Sodium 139 mEq/L mEq/L (135-145) Potassium 4.0 mEq/L mEq/L (3.3-5.0) Chloride 106 mEq/L mEq/L (97-110) Carbon Dioxide 22 mEq/l mEq/l (22-31) Anion Gap 11 mEq/L mEq/L (8-16) BUN 9 mg/dL mg/dL (7-23) Creatinine 0.7 mg/dL mg/dL (0.6-1.0) Estimated GFR > 60 Glucose 106 mg/dL H mg/dL (70-100) Calcium 9.6 mg/dL mg/dL (8.5-10.4) Beta HCG, Qual NEGATIVE Medications Given: Discontinued Medications Ketorolac Tromethamine (Toradol) 30 mg IVP EDNOW ONE Stop: 10/11/17 20:54 Last Admin: 10/11/17 20:59 Dose: 30 mg Departure - Departure Disposition: Home, Routine, Self-Care Clinical Impression: Dysfunctional uterine bleeding Condition: Good Instructions: Dysfunctional Uterine Bleeding (ED) Additional Instructions: 1. Take Ibuprofen or Motrin 600 mg by mouth three times a day. 2. Please return to the ED for markedly worsening symptoms, heavy bleeding or other concerns. 3. Please follow up with your primary care provider as needed. Referrals: ARIANA JARAMILLO [Other] - As per Instructions
[2017-10-11 20:35] LABS: PLATELET COUNT 309 10^3/uL (150-400)
[2017-10-11] MEDS ORDERED: KETOROLAC 30 MG/1 ML SDV IVP ONE (20:53)
[2017-10-11 22:36] VITALS: BP 128/77
== END 2017-10-11 22:41 | disposition home or self-care (01) ==
DX: N93.9 Abnormal uterine and vaginal bleeding, unspecified (principal); R10.2 Pelvic and perineal pain
CPT/HCPCS: 96374; J1885

== ENCOUNTER 2017-12-07 16:34 | Emergency (ER) | payer MEDICAID ==
[2017-12-07 16:40] VITALS: BP 127/83
--- NOTE | 2017-12-07 17:13 | EDPHY ---
H & P Stated Complaint: ST X 3 DAYS ALSO PAIN L HAND Time Seen by Provider: 12/07/17 16:47 HPI/ROS: CHIEF COMPLAINT: Sore throat, left hand pain HISTORY OF PRESENT ILLNESS: This is a 21-year-old female who presents with 3 days of sore throat. She has had a mild cough, no shortness of breath. She has a popping sensation in her left ear. No ear pain. She has not had fever. She had 1 bout of vomiting 2 days ago, none since. She thinks that she vomited only because she felt as if there was something in her throat, not because she had nausea or an abdominal problem. She has not had diarrhea denies dysuria. She also reports left hand pain that she relates to an injury yesterday well kickboxing. REVIEW OF SYSTEMS: A ten system review of systems was performed and is negative with the exception of the items mentioned in the HPI. Past medical history: Reactive airway disease, alcohol syndrome, attention deficit hyperactivity disorder, depression Social history: She works part-time at the [employer]. No tobacco use. General Appearance: Alert. Vital signs reviewed. Vital signs normal. Eyes: Pupils equal and round, no conjunctival injection, no discharge. Anicteric. ENT, Mouth: Mucous membranes are moist, no oropharyngeal erythema or edema. Swallowing easily. EACs and TMs normal. Neck: No lymphadenopathy, supple. Trachea midline. No thyromegaly. Respiratory: Lungs are clear to auscultation; no wheezes, rales, or rhonchi. Cardiovascular: Regular rate and rhythm; no murmur, rub, or gallop. Gastrointestinal: Abdomen is soft and nontender, no masses or organomegaly, bowel sounds normal. Skin: Warm and dry, no rashes on exposed skin, normal color. Back: Nontender to palpation over the thoracolumbar spine. No CVAT. Extremities: Tenderness puts to palpation over the left 5th MCP and proximal small finger. Neurological: Alert and oriented. Moving all four extremities easily and equally. Psychiatric: Normal affect. - Personal History LMP (Females 10-55): Now Current Tetanus Diphtheria and Acellular Pertussis (TDAP): Yes Tetanus Vaccine Date: < 10 years - Medical/Surgical History Hx Asthma: Yes Hx Chronic Respiratory Disease: No Hx Diabetes: No Hx Cardiac Disease: Yes Hx Renal Disease: No Hx Cirrhosis: No Hx Alcoholism: No Hx HIV/AIDS: No Hx Splenectomy or Spleen Trauma: No Other PMH: PMHx: Alcohol Syndrome at , ADHD, anxiety, asthma, depression, heart murmur, bacterial vaginosis. PSHx: denies - Social History Smoking Status: Former smoker Constitutional: Initial Vital Signs Temperature (C) 37.1 C 12/07/17 16:37 Heart Rate 82 12/07/17 16:37 Respiratory Rate 18 12/07/17 16:37 Blood Pressure 127/83 H 12/07/17 16:37 O2 Sat (%) 97 12/07/17 16:37 O2 Delivery Mode Room Air Allergies/Adverse Reactions: amoxicillin Allergy (Severe, Verified 12/07/17 16:36) Anaphylaxis Penicillins Allergy (Severe, Verified 12/07/17 16:36) Anaphylaxis strawberry Allergy (Verified 12/07/17 16:36) Home Medications: Medication Instructions Recorded Apri 28 Day Tablet 09/07/16 Albuterol 11/16/16 Medical Decision Making ED Course/Re-evaluation: Viral pharyngitis--I do not feel that strep swab is warranted, given her physical exam (neg Centor criteria). Symptomatic treatment recommended. I do not think that she has URI, influenza, bronchitis, pneumonia. She c/o hand pain related to boxing. Pain is along fifth metacarpal/mcp joint. She has longstanding flexion deformity of fifth DIP. Xray of left hand negative for acute fracture or dislocation. Departure - Departure Disposition: Home, Routine, Self-Care Clinical Impression: Acute pharyngitis Qualifiers: Pharyngitis/tonsillitis etiology: unspecified etiology Qualified Code(s): J02.9 - Acute pharyngitis, unspecified Contusion of left hand Qualifiers: Encounter type: initial encounter Qualified Code(s): S60.222A - Contusion of left hand, initial encounter Condition: Good Instructions: Pharyngitis (ED), Contusion in Adults (ED) Additional Instructions: Adult Pain & Fever Control: We recommend Acetaminophen (Tylenol) and Ibuprofen (Motrin,Advil) for pain and fever control. When fever is high or pain severe, both drugs can be used at the same time, but at different intervals. Please note the time differences. Your dose is: Acetaminophen 650mg every 4 to 6 hours Ibuprofen 400mg every 6 hours with food OR Note: do not take Acetaminophen with Hydrocodone (Vicodin, Lortab) or Oycodone (Percocet). These medications also contain Acetaminophen. No more than 3000mg of Acetaminophen should be taken in 24 hours (for an adult). Continue with T and honey. I recommend [place] Cold Care Throat Coat tea--you can buy this in the grocery store. Throat lozenges might also help. Ice your hand. You should be excused from work on Tuesday, December 05, 2017. I have written a work excuse that states that you can return to work next week, December 13. Referrals: Dorothy Perez MD [Medical Doctor] - As per Instructions Stand Alone Forms: Work Excuse
== END 2017-12-07 18:18 | disposition home or self-care (01) ==
DX: J02.9 Acute pharyngitis, unspecified (principal); J45.909 Unspecified asthma, uncomplicated; F41.9 Anxiety disorder, unspecified; F32.9 Major depressive disorder, single episode, unspecified; R01.1 Cardiac murmur, unspecified; Q86.0 Fetal alcohol syndrome (dysmorphic); Z87.891 Personal history of nicotine dependence; S60.222A Contusion of left hand, initial encounter; Y93.71 Activity, boxing

== ENCOUNTER 2018-01-23 10:33 | Emergency (ER) | payer MEDICAID ==
[2018-01-23 10:38] VITALS: BP 134/77
--- NOTE | 2018-01-23 11:28 | EDPHY ---
H & P Smoking Status: Former smoker Time Seen by Provider: 01/23/18 10:55 HPI/ROS: CLINICAL IMPRESSION: Yeast vaginitis ASSESSMENT/PLAN: 22-year-old female presents to the emergency department with subjective vaginal itching and a thick white discharge for the last 2 days. No associated pelvic pain, dysuria, urgency, flank pain, fever or chills. Patient states she is not sexually active, is not on her menstrual cycle, and denies STD wrist. She prefers to be treated symptomatically and formal pelvic exam was not performed. She was given a prescription for Diflucan. She is requesting a prescription for Flagyl given that she has had bacterial vaginosis in the past however I recommend she try Diflucan 1st. I also emphasized the importance of primary care establishment and follow-up. Referrals were given. Warning signs return to ED sooner outlined in person and discharge papers DIFFERENTIAL DX: Differential includes but not limited to yeast vaginitis, bacterial vaginosis, STIs, PID, UTI, pyelonephritis CHIEF COMPLAINT: Vaginal discharge and itching HPI: 22-year-old female presents to the emergency department with 2 days of vaginal itching and thick white vaginal discharge. Patient reports no foul-smelling odor. She is not sexually active and denies STIs. She reports no . No dysuria, urgency or flank pain. No lower pelvic pain. No fevers or chills. She has not used anything for treatment but states she has had bacterial vaginosis in the past. She does not have a primary care doctor. PAST MEDICAL HISTORY: alcohol syndrome Pertinent Past Surgical History: Prior orthopedic injuries Family History: None reported Social History: Former smoker ROS: A full 10 point review of systems was negative except for those mentioned in HPI. PHYSICAL EXAM: General Appearance: Alert, oriented, appropriate, cooperative, NAD, well hydrated, non-toxic appearing, VSS, no hypoxia. Respiratory: There are no retractions, lungs are clear to auscultation. Cardiac: Regular rate and rhythm, no murmurs or gallops. Gastrointestinal: Abdomen is soft, nontender, bowel sounds normal, no masses/ hernia, no rigidity, guarding or focal peritoneal findings. Formal pelvic exam declined by patient Skin: Warm, dry, no rashes, no nodules on palpation. MEDICAL DECISION MAKING: Patient was seen independently. Secondary supervising physician at time of evaluation was Dr. De La Cruz . Diagnosis: Yeast vaginitis ]. New, requires workup Summary: See Assessment and Plan for summary of ED visit Patient Progress: Stable. (Wilman Platt) Constitutional: Initial Vital Signs Temperature (C) 36.7 C 01/23/18 10:35 Heart Rate 84 01/23/18 10:35 Respiratory Rate 18 01/23/18 10:35 Blood Pressure 134/77 H 01/23/18 10:35 O2 Sat (%) 96 01/23/18 10:35 O2 Delivery Mode Room Air Allergies/Adverse Reactions: amoxicillin Allergy (Severe, Verified 01/23/18 10:34) Anaphylaxis Penicillins Allergy (Severe, Verified 01/23/18 10:34) Anaphylaxis strawberry Allergy (Verified 01/23/18 10:34) Home Medications: Medication Instructions Recorded Apri 28 Day Tablet 09/07/16 Albuterol 11/16/16 Fluconazole [Diflucan] 200 mg PO DAILY #1 tablet 01/23/18 metroNIDAZOLE [Flagyl 500 mg (*)] 500 mg PO BID #20 tab 01/23/18 MDM/Departure - MDM ED Course/Re-evaluation: The patient was evaluated and managed by the Physician Chart Calculator. My co- signature indicates that I have reviewed this chart and I agree with the findings and plan of care as documented. I am the secondary supervising physician. (Day De La Cruz) - Depart Disposition: Home, Routine, Self-Care Clinical Impression: Vaginal yeast infection Condition: Good Instructions: Yeast Infection (ED) Additional Instructions: DISCHARGE INSTRUCTIONS FROM YOUR DOCTOR Thank you for visiting our emergency department today. Please keep in mind that discharge from the emergency department does not mean that there is nothing wrong - it simply means that we have not identified an emergency condition that requires further evaluation or treatment in the hospital. You should always plan to follow up with primary care for re-evaluation of your condition in the next 2-3 days. If you have been referred to a specialist, please call as soon as possible (today or tomorrow) to schedule your follow up appointment at the appropriate time. We gave you a prescription of Diflucan to take 1 time only for vaginal yeast infection. If her symptoms resolve with this, you do not need to take the additional prescription for Flagyl. Flagyl was prescribed if symptoms persist and treat bacterial vaginosis. Do not drink alcohol with this antibiotic. It is important that you establish care with a primary care provider. Referrals were given to today. Please follow up with them this week. Return to the emergency department for worsening symptoms, fevers, pelvic pain, nausea or vomiting, painful urination or flank pain, or any other concerns. People present with illnesses and injuries in different ways, and it is always possible that we have missed something. You may always return for re-evaluation if symptoms worsen or if they are not improving or if you develop new/different symptoms. Again, thank you for choosing our emergency department. We hope that you feel better. Prescriptions: Fluconazole [Diflucan] 200 mg PO DAILY #1 tablet metroNIDAZOLE [Flagyl 500 mg (*)] 500 mg PO BID #20 tab Referrals: NONE *PRIMARY CARE P,. [Primary Care Provider] - As per Instructions [facility],. [Clinic] - 1-2 days without fail
== END 2018-01-23 11:33 | disposition home or self-care (01) ==
DX: B37.3 Candidiasis of vulva and vagina (principal)

== ENCOUNTER 2018-03-11 13:52 | Emergency (ER) | payer MEDICAID ==
--- NOTE | 2018-03-11 15:30 | EDPHY ---
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 She presents today reporting that she occasionally does self exams while in the shower and she is feeling "bubbles" on her cervix. She is also reporting a brown, somewhat foul smelling discharge. She denies any fevers. No urinary complaints. Has had new sexual partner in January. Uses extended control pills. Last period was at the end of December. Patient did have some spotting about 2-3 weeks ago. No fever, chills, chest pain, shortness of breath, palpitations, vomiting, diarrhea, urinary complaints, headache, lightheadedness. REVIEW OF SYSTEMS: A comprehensive 10 system review of systems was reviewed and is otherwise negative aside from elements mentioned in the history of present illness and medical decision making. PAST MEDICAL HISTORY: Patient denies. Questionable heart murmur as a child. SOCIAL HISTORY: Former smoker. Primary care physician is Pamela at [facility]. VITAL SIGNS Reviewed by me. GENERAL: Well-developed, well-nourished, resting comfortably in no respiratory distress. HEENT: Atraumatic. Eyes: No icterus, no injection. Mouth: moist mucous membranes. No erythema or lesions. Neck: supple with no adenopathy. LUNGS: Clear to auscultation bilaterally, no wheezes, rhonchi or rales. CARDIAC: Regular rate and rhythm, no rubs, murmurs or gallops. ABDOMEN: Soft, nontender, nondistended, bowel sounds normal. BACK: No CVA tenderness. : Normal external genitalia. Vaginal vault is clear with no bleeding. Cervical ectropion is present. Small amount of thick discharge present in the cervical os. No CMT. EXTREMITIES: No trauma. No edema. Range of motion is normal throughout. NEURO: Alert and oriented, grossly nonfocal. SKIN: Warm and dry, no rash. PSYCHIATRIC: Normal mentation, no agitation. Smoking Status: Former smoker Constitutional: Initial Vital Signs Temperature (C) 37.1 C 03/11/18 14:12 Heart Rate 88 03/11/18 14:12 Respiratory Rate 16 03/11/18 14:12 Blood Pressure 121/73 H 03/11/18 14:12 O2 Sat (%) 96 03/11/18 14:12 O2 Delivery Mode Room Air Allergies/Adverse Reactions: amoxicillin Allergy (Severe, Verified 01/23/18 10:34) Anaphylaxis Penicillins Allergy (Severe, Verified 01/23/18 10:34) Anaphylaxis strawberry Allergy (Verified 01/23/18 10:34) Home Medications: Medication Instructions Recorded Bcp 03/11/18 Metronidazole 500 mg PO BID #14 tablet 03/11/18 Medical Decision Making ED Course/Re-evaluation: GC and chlamydia cultures as well as BV, yeast, and vaginal culture sent. Patient given a prescription for metronidazole to use if needed for positive BV. 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 Also question regarding frequent emergency department visits for STD concerns, vaginal discharge, vaginal pain. Patient denies any unwanted sexual contact, trafficking, or unsafe situation. Discharged to follow up as directed. Differential Diagnosis: Differential diagnoses for the patient's symptom complex was considered including but not limited to GC, chlamydia, gonorrhea, bacterial vaginosis, Trichomonas, retained tampon, cervical cyst, cervical carcinoma. Departure - Departure Disposition: Home, Routine, Self-Care Clinical Impression: Vaginal discharge Condition: Good Instructions: Bacterial Vaginosis (ED), Vaginal Discharge (ED) Additional Instructions: Your pelvic examination today is largely normal. You do have some signs of ectropion on your cervix. I recommend a pap smear as soon as possible. You been given a prescription for metronidazole. Please take this if you're bacterial vaginosis culture is positive. We will call you with those results. You may also call the emergency department at [phone] in 2-3 days to obtain the results of all the cultures. Referrals: FLORINA URBAN [Other] - As per Instructions Prescriptions: Metronidazole 500 mg PO BID #14 tablet
[2018-03-11 15:40] VITALS: BP 116/85
[2018-03-12 13:35] LABS: GC AMPLIFICATION GENPROBE NEGATIVE (NEGATIVE)
== END 2018-03-11 15:39 | disposition home or self-care (01) ==
LOC: CED 13:52
DX: N89.8 Other specified noninflammatory disorders of vagina (principal)
CPT/HCPCS: 99283-ER

== ENCOUNTER 2018-04-28 20:05 | Emergency (ER) | payer MEDICAID ==
--- NOTE | 2018-04-28 20:37 | EDPHY ---
H & P Stated Complaint: Pelvic pain and heavy bleeding for two weeks. 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 She tells me that she has had continuous spotting and vaginal bleeding for about the last 2 years but that her symptoms have become more concerning over the last 3 months. She is not currently sexually active. She states she has not had sex since February. She reports that she has had multiple evaluations for STD since then in all been negative . She was diagnosed last month with a yeast infection and treated appropriately. The symptoms improved. She is seen by OBGYN in [place] and is currently on control. She has tried 2 different types of control with only moderate improvement. She spoke with the nurse at their office yesterday and told them that she is continuing to have bleeding and the nurse recommended she come to the ER and that we may be able to stop the bleeding or change her prescription. She has not had a fever. She denies abdominal pain or tenderness. She also complains of frequent urination. No vomiting or diarrhea. She denies risk of . No unusual vaginal discharge. Severity: Moderate Modifying factors: None REVIEW OF SYSTEMS: Constitutional: denies: chills, fever, recent illness, recent injury EENTM: denies: blurred vision, double vision, nose congestion Respiratory: denies: cough, shortness of breath Cardiac: denies: chest pain, irregular heart rate, lightheadedness, palpitations Gastrointestinal/Abdominal: denies: abdominal pain, diarrhea, nausea, vomiting, blood streaked stools Genitourinary: See HPI Musculoskeletal: denies: joint pain, muscle pain Skin: denies: lesions, rash, jaundice, bruising Neurological: denies: headache, numbness, paresthesia, tingling, dizziness, weakness Hematologic/Lymphatic: denies: blood clots, easy bleeding, easy bruising Immunologic/allergic: denies: HIV/AIDS, transplant 10 systems reviewed and negative except as noted EXAM: GENERAL: Well-appearing, well-nourished and in no acute distress. HEAD: Atraumatic, normocephalic. EYES: Pupils equal round and reactive to light, extraocular movements intact, sclera anicteric, conjunctiva are normal. ENT: TMs normal, nares patent, oropharynx clear without exudates. Moist mucous membranes. NECK: Normal range of motion, supple without lymphadenopathy or JVD. LUNGS: Breath sounds clear to auscultation bilaterally and equal. No wheezes rales or rhonchi. HEART: Regular rate and rhythm without murmurs, rubs or gallops. ABDOMEN: Soft, nontender, normoactive bowel sounds. No guarding, no rebound. No masses appreciated. : The patient declines pelvic examination BACK: No CVA tenderness, no spinal tenderness, step-offs or deformities EXTREMITIES: Normal range of motion, no pitting or edema. No clubbing or cyanosis. NEUROLOGICAL: Cranial nerves II through XII grossly intact. Normal speech, normal gait. 5/5 strength, normal movement in all extremities, normal sensation , normal reflexes PSYCH: Normal mood, normal affect. SKIN: Warm, dry, normal turgor, no visible rashes or lesions. Source: Patient Exam Limitations: No limitations - Personal History LMP (Females 10-55): Now Current Tetanus/Diphtheria Vaccine: Yes Current Tetanus Diphtheria and Acellular Pertussis (TDAP): Yes Tetanus Vaccine Date: 2017 - Medical/Surgical History Hx Asthma: Yes Hx Chronic Respiratory Disease: No Hx Diabetes: No Hx Cardiac Disease: No Hx Renal Disease: No Hx Cirrhosis: No Hx Alcoholism: No Hx HIV/AIDS: No Hx Splenectomy or Spleen Trauma: No Other PMH: PMHx: Alcohol Syndrome at , ADHD, anxiety, asthma, depression, heart murmur. PSHx: denies - Family History Significant Family History: No pertinent family hx - Social History Smoking Status: Former smoker Alcohol Use: None Constitutional: Initial Vital Signs Temperature (C) 37.3 C 04/28/18 20:15 Heart Rate 83 04/28/18 20:15 Respiratory Rate 16 04/28/18 20:15 Blood Pressure 128/87 H 04/28/18 20:15 O2 Sat (%) 96 04/28/18 20:15 O2 Delivery Mode Room Air Allergies/Adverse Reactions: amoxicillin Allergy (Severe, Verified 04/28/18 20:13) Anaphylaxis Penicillins Allergy (Severe, Verified 04/28/18 20:13) Anaphylaxis strawberry Allergy (Severe, Verified 04/28/18 20:14) Dyspnea Home Medications: Medication Instructions Recorded Ibuprofen 600 mg PO TID PRN #30 tablet 04/28/18 Pirmella 7-7-7-28 Tablet 04/28/18 Medical Decision Making ED Course/Re-evaluation: The patient declines pelvic examination and states she has been examined several times recently. she states that her symptoms have not changed she was just hoping that we could give her a new control pill to try and stop the bleeding. She has not felt lightheaded or dizzy or febrile. Recent blood work done does not reveal any anemia. She adamantly denies risk for STD and has not been sexually active for several months. We discussed our limitations the emergency department especially without performing exam. I will refer her back to her OBGYN for further management of this chronic vaginal spotting and bleeding. We did agree to obtain a urine sample and check for signs of infection. Urinalysis is negative except for 2+ blood which is likely from her vaginal bleeding. She is otherwise well-appearing and has stable vital signs and nontender abdomen. She has a follow-up appoint with her OBGYN in 3 days. I discussed indications for returning here sooner than that such as increased bleeding or fevers or fainting etc. She is also asking me to write her prescription for ibuprofen because her employer is currently not pain her and if she gets a prescription will be free. Differential Diagnosis: Partial list of the Differential diagnosis considered include but were not limited to; urinary tract infection, dysfunctional uterine bleeding, endometriosis and although unlikely based on the history and physical exam, I also considered , STD, ectopic. I discussed these differential diagnoses and the plan with the patient as well as the usual and expected course. The patient understands that the diagnosis is provisional and that in medicine we are not always correct and that further workup is often warranted. Usual and customary warnings were given. All of the patient's questions were answered. The patient was instructed to return to the emergency department should the symptoms at all worsen or return, otherwise to followup with the physician as we discussed. - Data Points Point of Care Test Results: Urine Collection Date 04/28/18 Collection Time 20:47 HCG Results Negative Urine Dip Collection Date 04/28/18 Collection Time 20:47 Specific [place] (1.002-1.030) 1.025 PH (5.0-7.5) 7.5 Leukocytes (Negative) Negative Nitrites (Negative) Negative Protein (Negative) Trace Glucose (Negative) Negative Ketones (Negative) Trace Urobilnogen (0.2-1.0 EU) 0.2 Bilirubin (Negative) Negative Blood (Negative) 2+ Departure - Departure Disposition: Home, Routine, Self-Care Clinical Impression: Vaginal bleeding Condition: Fair Instructions: Dysfunctional Uterine Bleeding (ED) Referrals: NONE *PRIMARY CARE P,. [Primary Care Provider] - As per Instructions Karen Huertas MD [Medical Doctor] - As per Instructions Prescriptions: Ibuprofen 600 mg PO TID PRN #30 tablet PRN Reason: Pain, Moderate
[2018-04-28 21:13] VITALS: BP 126/86
== END 2018-04-28 21:12 | disposition home or self-care (01) ==
LOC: CED 20:05
DX: N93.8 Other specified abnormal uterine and vaginal bleeding (principal); Z87.891 Personal history of nicotine dependence
CPT/HCPCS: 81025-ER; 99283-ER

== ENCOUNTER 2018-05-08 19:34 | Emergency (ER) | payer MEDICAID ==
--- NOTE | 2018-05-08 20:00 | EDPHY ---
H & P Time Seen by Provider: 05/08/18 19:57 HPI/ROS: Chief complaint. Vaginal bleeding HPI. Patient 22-year-old female presents emergency department with vaginal bleeding. She has a history of heavy vaginal bleeding off and on over the past 2 years. A month ago she tried a different control pills to try to get better control of her vaginal bleeding. As she was having vaginal bleeding beginning last week she quit taking her control pills mid cycle. She has crampy suprapubic abdominal pain. No urinary symptoms. She was seen March 11 for vaginal discharge and April 28 for vaginal bleeding. No chest pain or shortness of breath. No fever. No vomiting or diarrhea ROS 10 systems were reviewed and negative with the exception of the elements mentioned in the history of present illness Past Medical/Surgical History: alcohol syndrome, attention deficit hyperactivity disorder, anxiety, asthma, depression Social History: Single, nonsmoker, no alcohol Smoking Status: Former smoker Physical Exam: General Appearance: Alert pleasant well-developed female mild distress vital signs are stable Eyes: Pupils equal and round no pallor or injection. ENT, Mouth: Mucous membranes are moist. Respiratory: There are no retractions, lungs are clear to auscultation. Cardiovascular: Regular rate and rhythm. Gastrointestinal: Abdomen is soft with mild suprapubic tenderness. No masses. Normal bowel sounds Neurological: Awake and alert, sensory and motor exams grossly normal. Skin: Warm and dry, no rashes. Musculoskeletal: Neck is supple nontender. Extremities symmetrical, full range of motion. Psychiatric: Patient is oriented X 3, there is no agitation. Constitutional: Initial Vital Signs Temperature (C) 36.9 C 05/08/18 19:37 Heart Rate 96 05/08/18 19:37 Respiratory Rate 18 05/08/18 19:37 Blood Pressure 135/80 H 05/08/18 19:37 O2 Sat (%) 98 05/08/18 19:37 O2 Delivery Mode Room Air Allergies/Adverse Reactions: amoxicillin Allergy (Severe, Verified 05/08/18 19:36) Anaphylaxis Penicillins Allergy (Severe, Verified 05/08/18 19:36) Anaphylaxis strawberry Allergy (Severe, Verified 05/08/18 19:36) Dyspnea Home Medications: Medication Instructions Recorded Pirmella 7-7-7-28 Tablet 04/28/18 medroxyPROGESTERone [Provera 10 mg 10 mg PO DAILY #5 tab 05/08/18 (*)] Medical Decision Making Procedures: IV normal saline. IV Toradol. Oral progesterone ED Course/Re-evaluation: recheck at 9 p.m. Patient is stable. She and I discussed laboratory evaluation , treatment plan including criteria for return importance of follow-up and further evaluation. She expresses understanding and agreement Differential Diagnosis: Patient sounds like she has had dysfunctional uterine bleeding especially with menstrual periods. She stopped her control pills mid cycle and is now having vaginal bleeding - Data Points Laboratory Results: Laboratory Results 05/08/18 20:15 05/08/18 05/08/18 20:15 20:15 WBC 6.75 10^3/uL 10^3/uL (3.80-9.50) RBC 4.56 10^6/uL 10^6/uL (4.18-5.33) Hgb 12.7 g/dL g/dL (12.6-16.3) Hct 39.3 % % (38.0-47.0) MCV 86.2 fL fL (81.5-99.8) MCH 27.9 pg pg (27.9-34.1) MCHC 32.3 g/dL L g/dL (32.4-36.7) RDW 13.2 % % (11.5-15.2) Plt Count 321 10^3/uL 10^3/uL (150-400) MPV 8.8 fL fL (8.7-11.7) Neut % (Auto) 52.6 % % (39.3-74.2) Lymph % (Auto) 38.4 % % (15.0-45.0) Walsh % (Auto) 7.0 % % (4.5-13.0) Eos % (Auto) 1.5 % % (0.6-7.6) Baso % (Auto) 0.4 % % (0.3-1.7) Nucleat RBC Rel Count 0.0 % % (0.0-0.2) Absolute Neuts (auto) 3.55 10^3/uL 10^3/uL (1.70-6.50) Absolute Lymphs (auto) 2.59 10^3/uL 10^3/uL (1.00-3.00) Absolute Monos (auto) 0.47 10^3/uL 10^3/uL (0.30-0.80) Absolute Eos (auto) 0.10 10^3/uL 10^3/uL (0.03-0.40) Absolute Basos (auto) 0.03 10^3/uL 10^3/uL (0.02-0.10) Absolute Nucleated RBC 0.00 10^3/uL 10^3/uL (0-0.01) Immature Gran % 0.1 % % (0.0-1.1) Immature Gran # 0.01 10^3/uL 10^3/uL (0.00-0.10) Beta HCG, Qual NEGATIVE Medications Given: Discontinued Medications Ketorolac Tromethamine (Toradol) 30 mg IVP EDNOW ONE Stop: 05/08/18 20:07 Last Admin: 05/08/18 20:43 Dose: 30 mg Medroxyprogesterone Acetate (Provera) 10 mg PO EDNOW ONE Stop: 05/08/18 20:31 Last Admin: 05/08/18 20:43 Dose: 10 mg Departure - Departure Disposition: Home, Routine, Self-Care Clinical Impression: Uterine bleeding, dysfunctional Condition: Good Instructions: Dysfunctional Uterine Bleeding (ED) Additional Instructions: Take Provera pill daily for the next 5 days Return for worsening bleeding or pain. Follow-up with your OBGYN or PCP in the next 2-3 days without fail Referrals: ARIANA RODAS [Other] - 2-3 days without fail Prescriptions: medroxyPROGESTERone [Provera 10 mg (*)] 10 mg PO DAILY #5 tab
[2018-05-08] MEDS ORDERED: KETOROLAC 30 MG/1 ML SDV IVP ONE (20:06)
[2018-05-08] MEDS ORDERED: medroxyPROGESTERone 10 MG TAB PO SCH (20:15)
[2018-05-08 20:29] LABS: PLATELET COUNT 321 10^3/uL (150-400)
[2018-05-08] MEDS ORDERED: medroxyPROGESTERone 10 MG TAB PO ONE (20:30)
[2018-05-08 21:20] VITALS: BP 126/77
== END 2018-05-08 21:19 | disposition home or self-care (01) ==
DX: N93.8 Other specified abnormal uterine and vaginal bleeding (principal)
CPT/HCPCS: 96374; J1885

== ENCOUNTER 2018-07-07 15:50 | Emergency (ER) | payer MEDICAID | END 2018-07-07 17:12 | disposition home or self-care (01) | LOC: CED 15:50 ==